=== PATIENT | male | born 1955 | race Caucasian/White ===

== ENCOUNTER → 2020-12-24 | Outpatient (CLI) | payer BC ==
[~2020-12-24] MED LIST: AUGMENTIN 875-1 EAC1 PO; NORCO 325 MG-7.1 TA1 PO
[2020-12-24 14:46] LABS: BASO # 0.05 K/mm3 (0.02-0.10); EOS # 0.19 K/mm3 (0.04-0.40); EOS % 2.7 % (0.0-4.0); HEMATOCRIT 51.4 % (42.0-52.0); LYMPH# 1.53 K/mm3 (1.50-4.00); MEAN CELL VOLUME 90 fl (78-100); MEAN CORPUSCULAR HEMOGLOBIN 30 pg (27-31); MEAN CORPUSCULAR HGB CONC 33 g/dL (33-37); MEAN PLATELET VOLUME 8.7 fl (7.4-10.4); MONO # 0.77 K/mm3 (0.20-0.80); NEU # 4.56 K/mm3 (1.40-6.50); PLATELET COUNT 244 K/mm3 (130-400); RED BLOOD COUNT 5.74 M/mm3 (4.20-5.60); RED CELL DISTRIBUTION WIDTH 13.1 % (11.5-14.5); WHITE BLOOD COUNT 7.1 K/mm3 (4.8-10.8)
[2020-12-24 17:14] LABS: ERYTHROCYTE SEDIMENTATION RATE 5 mm/hr (0-20)
== END ==
LOC: RAD 14:29
PROVIDERS: Family Medicine
DX: E04.1 Nontoxic single thyroid nodule (principal); J31.2 Chronic pharyngitis; R22.1 Localized swelling, mass and lump, neck

== ENCOUNTER → 2021-07-07 | Outpatient (CLI) | payer BC | LOC: LAB 13:52 | DX: J31.2 Chronic pharyngitis (principal) ==

== ENCOUNTER → 2023-09-09 | Outpatient (CLI) | payer MEDICARE ==
[2023-09-09 16:47] LABS: BASO # 0.04 K/mm3 (0.02-0.10); HEMATOCRIT 50.1 % (42.0-52.0); HEMOGLOBIN 16.7 g/dL (13.5-18.0); LYMPH# 1.75 K/mm3 (1.50-4.00); MEAN CELL VOLUME 87 fl (78-100); MEAN CORPUSCULAR HEMOGLOBIN 29 pg (27-31); MEAN CORPUSCULAR HGB CONC 33 g/dL (33-37); MEAN PLATELET VOLUME 9.1 fl (7.4-10.4); MONO # 0.78 K/mm3 (0.20-0.80); NEU # 3.83 K/mm3 (1.40-6.50); PLATELET COUNT 245 K/mm3 (130-400); RED BLOOD COUNT 5.77 M/mm3 (4.20-5.60); RED CELL DISTRIBUTION WIDTH 13.8 % (11.5-14.5); WHITE BLOOD COUNT 6.6 K/mm3 (4.8-10.8)
[2023-09-09 16:50] LABS: ALBUMIN 4.1 g/dL (3.4-4.8)
[2023-09-09 16:51] LABS: CALCIUM 9.5 mg/dL (8.3-10.5)
[2023-09-09 16:53] LABS: TOTAL PROTEIN 7.2 g/dL (6.2-8.1)
[2023-09-09 16:54] LABS: TOTAL BILIRUBIN 0.6 mg/dL (0.2-1.2)
[2023-09-09 17:05] LABS: D-DIMER 0.58 mg/L FEU (0.15-0.50)
== END ==
LOC: LAB 16:22
PROVIDERS: Nurse Practitioner Family
DX: R60.0 Localized edema (principal)

== ENCOUNTER → 2023-09-10 | Outpatient (CLI) | payer MEDICARE | LOC: RAD 11:23 | DX: R79.1 Abnormal coagulation profile (principal) ==